=== PATIENT | male | born 1945 | race Caucasian/White ===

== ENCOUNTER 2016-12-03 05:50 | Day surgery (SDC) | payer MEDICARE, MEDICAID ==
[2016-12-03] MEDS ORDERED: ceFAZolin 2 GM PREMIX(*) 2 GM/50 ML BAG IVPB ONE (05:51)
[2016-12-03] MEDS ORDERED: Buffered Lidocaine 0.9% SYRIN* 5 ML/SYR SYRINGE ONE (05:51)
[2016-12-03] MEDS ORDERED: Dexamethasone IV* 4 MG/ML 1 ML (4 MG) ONE (05:51)
[2016-12-03] MEDS ORDERED: Famotidine IV* 10 MG/ML 2 ML (20 mg) ONE (05:51)
[2016-12-03] MEDS ORDERED: Dexamethasone IV* 4 MG/ML 1 ML (4 MG) IV SLOW PU ONE (06:00)
[2016-12-03] MEDS ORDERED: Famotidine IV* 10 MG/ML 2 ML (20 mg) IV ONE (06:00)
[2016-12-03] MEDS ORDERED: Buffered Lidocaine 0.9% SYRIN* 5 ML/SYR SYRINGE INTRADERM ONE (06:00)
[2016-12-03] MEDS ORDERED: ROPIVACAINE 5 MG/ML 30 ML BTL (0.5%) ONE (07:12)
[2016-12-03] MEDS ORDERED: fentaNYL* 50 MCG/ML 2 ML VIAL (100 MCG VIAL) ONE ×2 (07:17→09:53)
[2016-12-03] MEDS ORDERED: Midazolam* 1 MG/ML 5 ML VIAL (5 MG) ONE (07:18)
[2016-12-03] MEDS ORDERED: Bupivacaine 0.25% EPI 200,000* 30 ML SDV ONE (07:24)
[2016-12-03] MEDS ORDERED: Bupivacaine 0.25% SDV* 30 ML ONE (07:24)
[2016-12-03] MEDS ORDERED: Rocuronium* 10 MG/ML VIAL ONE (07:58)
[2016-12-03] MEDS ORDERED: EPHEDrine (Pressors)* 50 MG/ML VIAL ONE (08:31)
[2016-12-03] MEDS ORDERED: fentaNYL* 50 MCG/ML 2 ML VIAL (100 MCG VIAL) IV PRN (08:53)
[2016-12-03] MEDS ORDERED: oxyCODONE/Acetamin 5/325 MG* TAB PO PRN (08:53)
[2016-12-03] MEDS ORDERED: PROCHLORPERAZINE INJ 5 MG/ML 2 ML VIAL IV PRN (08:53)
[2016-12-03] MEDS ORDERED: HYDROcodone/ACETAMIN 5-325 MG* 1 TAB PO PRN (08:53)
[2016-12-03] MEDS ORDERED: Ondansetron INJ* 2 MG/ML VIAL ONE (09:08)
[2016-12-03] MEDS ORDERED: Eye Irrigation Solution 30 ML BOTTLE LEFT EYE ONE (12:30)
[2016-12-03] MEDS ORDERED: HYDROcodone/ACETAMIN 5-325 MG* 1 TAB ONE (12:40)
[2016-12-03 13:51] VITALS: BP 114/75
--- NOTE | 2016-12-04 13:57 | OP ---
CC: Primary Care Physician, Dr. Gonzalez DATE OF OPERATION: 12/03/16 - [facility] DATE OF : 47 SURGEON: Anum Hernadez MD OIL PAINTER: RUPERTO De Los Santos. Assistance was needed for the entirety of the case to help with positioning and retraction and was utilized throughout all portions of the case. ANESTHESIOLOGIST: Dr. Jacques. ANESTHESIA: General interscalene block. PRE-OP DIAGNOSIS: Right rotator cuff tear and bicipital instability. POST-OP DIAGNOSIS: Right rotator cuff tear and bicipital instability. OPERATIVE PROCEDURE: 1. Right shoulder arthroscopy with glenohumeral debridement. 2. Rotator cuff repair, double row of the supra and infraspinatus tendon, massive tear. 3. Subacromial decompression with acromioplasty. 4. Open biceps tenodesis. INDICATIONS: Moose Nickerson is a 71-year-old male who has been following with [facility] for over a year for his shoulder complaints. He was diagnosed with a full- thickness rotator cuff tear last fall. He elected to proceed with nonoperative treatment due to personal issues, but he continued to have persistent pain and he is failing conservative management including physical therapy, injections, and has elected to proceed with operative treatment. Risks and benefits of surgery were discussed at length including but not limited to bleeding; infection; damage to nerves, vessels, surrounding structures; wound healing; persistent pain; retear; scaring; stiffness; incomplete relief of symptoms; persistent pain; risks of DVT, and risk of anesthesia. He underwent preoperative medical risk assessment and optimization prior to surgery IMPLANTS: Three 4.75 Healicoil, two Multifix, and one 2.8 mm Q-FIX. COMPLICATIONS: None. ESTIMATED BLOOD LOSS: Minimal. DESCRIPTION OF PROCEDURE: The patient was greeted in the preoperative area by the attending surgeon. Correct extremity was marked and consent was confirmed. The patient underwent interscalene nerve block by the anesthesiologist in the block room, and then afterwards he was brought to the operating suite where he was placed in supine position on the operating room table. He then underwent general anesthesia with endotracheal intubation after which the patient was placed in the left lateral decubitus position with an axillary roll. All bony prominences were padded and he was secured with a pegboard. The right shoulder was then prepped and draped in the usual sterile fashion beginning with chlorhexidine soap, scrub, and alcohol wipe, and a final prep with ChloraPrep. After appropriate surgical pause indicating site, side, procedure, and administration of antibiotics; the standard postero-lateral portal was made sharply with an 11 blade. Scope was introduced into the joint. Joint was examined and there was a full thickness tear of the rotator cuff which is in an irregular pattern. The glenohumeral joint was examined. There were grade 0 to 1 changes in the glenoid and humeral head. There was abundant tearing and fraying of the anterior, posterior, and superior labrum. The biceps is subluxed anteriorly with undersurface tearing of the subscap. The anterior portal was made in an outside in fashion. Shaver was used to debride the anterior, posterior, and superior labrum. The biceps was then tenotomized. The under surface of the subscapularis was identified and was partially torn but largely intact. Therefore, no repair was done at this point. The scope was then repositioned in the subacromial space and the lateral portal was made in an outside in fashion. The shaver was used to debride back the abundant bursa that was present. There was an irregular undersurface spur which was debrided back using the shaver and using the 4.0 oval fabrizio. Once the acromioplasty was complete, all loose debris and fluid was removed from the shoulder. Attention was directed to the rotator cuff. There is an unusual U-shaped tear which also had interstitial tearing and a longitudinal split through the supra and infraspinatus tendon. This was found to be a massive tear, although not largely retracted. It was a good portion of both the entirety in the supraspinatus as well as half of the infraspinatus. At this point, decision was made to do a repair. The remaining tissue was removed from the greater tuberosity using electrocautery device. The shaver was used to debride back the bone as well as the rotator cuff to find a good bleeding edge for healing purposes. The cuff was then mobilized carefully and attention was directed to the split to make sure that this was also mobilized appropriately. The rasp was also needed to prepare the greater tuberosity to allow for good bony bleeding bed. Once this was done and the greater tuberosity preparation as well as rotator cuff preparation was done three 4.75 Healicoils were placed along the medial aspect of the footprint; superiorly, middle, and anteriorly through 3 separate stab incisions. The sutures were then passed through the rotator cuff beginning anteriorly and then posteriorly and horizontal mattress configuration as well as a side to side configuration through that longitudinal split. Tissue cautery was okay and it was okay quality. Once the sutures were passed these were then tied down sequentially using arthroscopic knot tying. A strand from each of the knots were then passed through a knotless anchor which was then secured in an anterolateral bow. This had excellent purchase and helped compress the cuff. The remaining sutures were then passed through a second Multifix anchor and placed more laterally and posteriorly. This allowed for compression of the cuff, the shoulder was then gently taken through range of motion and was found to be stable. All fluid and debris was removed from the shoulder. Attention was directed to the biceps. The bed was air planed to the right. The anterior aspect of the shoulder was prepped with ChloraPrep. An incision in line with the biceps tendon encompassing the inferior two-thirds of the pec. This was made with a 15 blade. Soft tissues were carefully dissected using Metzenbaum scissors until the pec fascia was identified and then the remainder of the dissection was done bluntly. The bicipital groove was palpated and the pectoralis was retracted superiorly. The groove was then palpated, biceps were identified, and pulled through the wound. There was abundant synovitis and inflammation. The groove was then prepared with an electrocautery device with a rasp as well as an osteotome to allow for bony bleeding bed. The Q-Fix guide was then used to drill unicortically. The Q-Fix was then deployed with excellent purchase. Sutures were then passed through the tendon proximally, 1 cm proximal to the musculotendinous junction. These were passed in a Robson Tien type configuration. The excess stump was sharply excised. The biceps was then shuttled back into the wound and tied down. The wounds were copiously irrigated with sterile saline. The anterior wound was closed in layers with 2- 0 Vicryl and 3-0 Monocryl. The portals were closed with 3-0 nylon. Sterile dressings were applied and the anterior wound was injected with 20 cc of 0.25% Marcaine. Cryo/Cuff as well as an UltraSling were then applied. He was awoken from anesthesia and transferred to the PACU in stable condition. POSTOPERATIVE PLAN: He will be nonweightbearing for 6 weeks. He will allowed to work on elbow, wrist, and hand range of motion . He will not be allowed to move his shoulder otherwise. He will be discharged on pain medications as well as antibiotics. I will see the patient back in 10 to 14 days for followup. DVT prophylaxis considered but deferred due to no previous personal or family history. [id number]/[facility] #: [id number] [place]
== END 2016-12-03 14:00 | disposition home or self-care (01) ==
LOC: OR 05:50
PROVIDERS: ATTEND Orthopaedic Surgery
DX: S46.011A Strain of muscle(s) and tendon(s) of the rotator cuff of right shoulder, initial encounter (principal); S46.101A Unspecified injury of muscle, fascia and tendon of long head of biceps, right arm, initial encounter; M19.211 Secondary osteoarthritis, right shoulder; I10 Essential (primary) hypertension; I36.9 Nonrheumatic tricuspid valve disorder, unspecified; X58.XXXA Exposure to other specified factors, initial encounter; Y92.9 Unspecified place or not applicable
CPT/HCPCS: C1713; C1776; J0690; J1100; J2250; J2405; J2795; J3010

== ENCOUNTER 2017-05-18 21:38 | Emergency (ER) | payer MEDICARE, MEDICAID ==
[2017-05-18] MEDS ORDERED: Ketorolac INJ* 30 MG/ML 1 ML VIAL IM ONE (23:07)
[2017-05-18] MEDS ORDERED: Methocarbamol TAB* 500 MG PO ONE (23:07)
[2017-05-18] MEDS ORDERED: Lidocaine PATCH 5%* 1 PATCH TRANSDERM ONE (23:08)
--- NOTE | 2017-05-18 23:11 | ED ---
Back Pain - HPI Summary HPI Summary: 71M presents with back pain for a week. He states it is pain above his kidney. He states feels like muscle strain. He states keeps getting muscle spasms. He describes it as having an ache. He is taking tramadol and flexeril without relief. He states it feels better with movement and heat. He denies any injury. He denies any hematuria or dysuria. He denies any saddle anaesthesia or loss of bowel or bladder. He states that it is causing him to lose sleep due to pain. pain is 6/10. he denies any pain down the legs. went tanning couple days ago for psorsias and stayed into long so got burnt. - History of Current Complaint Chief Complaint: EDBackInjuryPain Stated Complaint: BACK PAIN/ABD PAIN/HASNT SLEPT Time Seen by Provider: 05/18/17 22:39 Pain Intensity: 6 - Allergies/Home Medications Allergies/Adverse Reactions: Allergies Allergy/AdvReac Type Severity Reaction Status Date / Time No Known Allergies Allergy Verified 05/18/17 21:50 PMH/Surg Hx/FS Hx/Imm Hx Endocrine/Hematology History: Denies: Hx Anticoagulant Therapy, Hx Blood Disorders, Hx Diabetes Cardiovascular History: Reports: Hx Hypertension - controlled with medications Denies: Hx Angina, Hx Coronary Artery Disease, Hx Hypercholesterolemia, Hx Myocardial Infarction, Hx Pacemaker/ICD, Hx Valvular Heart Disease Respiratory History: Denies: Hx Asthma, Hx Chronic Obstructive Pulmonary Disease (COPD) History: Reports: Hx Kidney Stones - had 7 times, none in recents years Denies: Hx Renal Disease Musculoskeletal History: Reports: Hx Arthritis - KNEE LEFT, right SHOULDER, jaw Sensory History: Reports: Hx Cataracts - bilat very slight, Hx Contacts or Glasses - glasses Denies: Hx Hearing Aid Opthamlomology History: Reports: Hx Cataracts - bilat very slight, Hx Contacts or Glasses - glasses Psychiatric History: Denies: Hx Panic Disorder - Surgical History Surgery Procedure, Year, and Place: LEFT KNEE [id number]. JAW SURGERY from hockey injury- 40 YEARS AGO. laparoscopic cholectstectomy 2013. nose repair from hockey accident - 40 years. colonoscopy, EGD Hx Anesthesia Reactions: No - Immunization History Immunizations Up to Date: Yes Infectious Disease History: No Infectious Disease History: Denies: Traveled Outside the [place] in Last 30 Days - Family History Known Family History: Positive: Unknown Family History: No FHx CAD - Social History Alcohol Use: Weekly Alcohol Amount: 2-3 drinks/week Substance Use Type: Reports: None Smoking Status (MU): Never Smoked Tobacco Review of Systems Negative: Fever Negative: Chest Pain Negative: Shortness Of Breath Positive: Myalgia - back pain All Other Systems Reviewed And Are Negative: Yes Physical Exam Triage Information Reviewed: Yes Vital Signs On Initial Exam: Initial Vitals Temp Pulse Resp BP Pulse Ox 98.2 F 102 14 120/88 98 05/18/17 21:46 05/18/17 21:46 05/18/17 21:46 05/18/17 21:46 05/18/17 21:46 Vital Signs Reviewed: Yes Appearance: Positive: Well-Appearing Skin: Positive: Warm, Dry Head/Face: Positive: Normal Head/Face Inspection Eyes: Positive: Normal, Conjunctiva Clear Respiratory/Lung Sounds: Positive: Clear to Auscultation, Breath Sounds Present Cardiovascular: Positive: Normal, RRR Abdomen Description: Positive: Nontender, Soft, Other: - has superficial burn to abdomen. Negative: CVA Tenderness (R), CVA Tenderness (L) Bowel Sounds: Positive: Present Musculoskeletal: Positive: Strength/ROM Intact - back, Other - tenderness T11- L2 on side of back, no midline tenderness, neg SLR Neurological: Positive: Reflexes Intact - patella, Normal Gait Psychiatric: Positive: Normal - Lashay Coma Scale Coma Scale Total: 15 Diagnostics - Vital Signs Vital Signs Temp Pulse Resp BP Pulse Ox 05/18/17 21:46 98.2 F 102 14 120/88 98 - Laboratory Lab Statement: Any lab studies that have been ordered have been reviewed, and results considered in the medical decision making process. Back Pain Course/Dx - Course Course Of Treatment: 71M presents with back pain for a week. He states it is pain above his kidney. He states feels like muscle strain. He states keeps getting muscle spasms. He describes it as having an ache. He is taking tramadol and flexeril without relief. He states it feels better with movement and heat. He denies any injury. He denies any hematuria or dysuria. He denies any saddle anaesthesia or loss of bowel or bladder. He states that it is causing him to lose sleep due to pain. pain is 6/10. on exam ambulate with steady gait. tender side of back at T11-L2, neg CVA tenderness. will treat with toradol, switch to robaxin instead of flexeril, steriod, and lidocaine patch. patient understand and agrees with plan. - Diagnoses Differential Diagnosis/HQI/PQRI: Positive: Herniated Disc, Strain, Sprain Provider Diagnoses: Back pain Discharge - Discharge Plan Condition: Good Disposition: HOME Prescriptions: Lidocaine PATCH 5%* [Lidoderm 5% Patch*] 2 patch TRANSDERM DAILY #8 patch Methocarbamol [Robaxin-750 MG TAB] 750 mg PO TID PRN #15 tab PRN Reason: Pain Methylprednisolone [Medrol Dosepak 4 MG*] 4 mg PO .SEE ANAND INSTRUCTION #1 packet Patient Education Materials: Back Pain (ED) Referrals: Vik Gonzalez MD [Primary Care Provider] - Additional Instructions: Follow directions on package for Medrol pack Take new muscle relaxers three times a day, stop the flexeril (Cyclobenzaprine) Apply lidocaine patches to area for up to 12 hours in one 24 hour period Use ibuprofen or Tylenol for pain every 6 hours ice/heat area, move as much as possible Follow up with primary within 5 days Return to ED if develop any new or worsening symptoms
[2017-05-18 23:44] VITALS: BP 124/78
== END 2017-05-18 23:44 | disposition home or self-care (01) ==
LOC: ED 21:38
DX: M54.9 Dorsalgia, unspecified (principal)
CPT/HCPCS: 96372; 99282; A9270-GY; J1885